=== PATIENT | male | born 1990 | race Caucasian/White ===

== ENCOUNTER 2021-08-15 17:49 | Emergency (ER) | payer BC ==
[~2021-08-15] VITALS: Ht 177.8 cm; Wt 82.0 kg
[2021-08-15 18:04] VITALS: BP 130/97
[2021-08-15] MEDS ORDERED: CEPH500C2 PO (19:18)
[2021-08-15] MEDS ORDERED: SULF1TAB48 PO (19:19)
== END 2021-08-15 19:52 | disposition home or self-care (01) ==
LOC: ER 18:46
DX: L03.012 Cellulitis of left finger (principal)
CPT/HCPCS: 99281